=== PATIENT | male | born 1945 | race Caucasian/White ===

== ENCOUNTER 2020-03-24 10:00 | Inpatient (IN) ==
[2020-03-24] MEDS ORDERED: Naloxone 0.4 MG/ML INJ IVP PRN ×2 (11:59→21:07)
[2020-03-24] MEDS ORDERED: *HR* Heparin 5,000 UNIT/ML VIAL SQ SCH (14:00)
[2020-03-24 14:54] LABS: Adenovirus Not Detected (Not Detect); Bordetella Pertussis Not Detected (Not Detect); Chlamydophila pneumoniae Not Detected (Not Detect); Coronavirus 229E Not Detected (Not Detect); Coronavirus HKU1 Not Detected (Not Detect); Coronavirus NL63 Not Detected (Not Detect); Coronavirus OC43 Not Detected (Not Detect); Human Metapneumovirus Not Detected (Not Detect); Human Rhinovirus/Enterovirus Not Detected (Not Detect); Influenza A Subtype 2009 H1 Not Detected (Not Detect); Influenza B Not Detected (Not Detect); Mycoplasma pneumoniae Not Detected (Not Detect); Parainfluenza Virus 1 Not Detected (Not Detect); Parainfluenza Virus 2 Not Detected (Not Detect); Parainfluenza Virus 3 Not Detected (Not Detect); Parainfluenza Virus 4 Not Detected (Not Detect); Respiratory Syncytial Virus Not Detected (Not Detect); SARS-CoV-2 Not Detected (Not Detect)
[2020-03-24] MEDS ORDERED: Ethanol\\Acetic Acid\\Na Ace\\Ben 1,000 ML IRRIG.SOLN IR ONE (17:17)
[2020-03-24] MEDS ORDERED: Vancomycin 1,000 MG VIAL ONE (17:18)
[2020-03-24] MEDS ORDERED: traZODone 50 MG TABLET PO PRN ×2 (17:23→21:07)
[2020-03-24] MEDS ORDERED: CeFAZolin Syr 2,000MG/20 ML 2,000 MG/20 ML SYRINGE IVPB ONE (18:22)
[2020-03-24] MEDS ORDERED: *HR* FentaNYL (PF) 100 MCG/2 ML VIAL ONE (18:29)
[2020-03-24] MEDS ORDERED: *HR* Propofol 200 MG/20 ML VIAL IVP ONE (18:30)
[2020-03-24] MEDS ORDERED: Dexamethasone 4 MG/ML VIAL ONE (18:46)
[2020-03-24] MEDS ORDERED: Ondansetron 4 MG/2 ML VIAL ONE (18:46)
[2020-03-24] MEDS ORDERED: *HR* PHENYLEPHRINE 1,000 MCG/10 ML SYRINGE IVP ONE (18:51)
[2020-03-24] MEDS ORDERED: Ondansetron 4 MG/2 ML VIAL IVP ONE (19:06)
[2020-03-24] MEDS: Morphine Sulfate 2 MG/ML SYRINGE IVP PRN ×5 (19:38→19:59)
[2020-03-24] MEDS ORDERED: Acetaminophen IV 1,000 MG/100 ML INFUS..BTL ONE (19:51)
[2020-03-24] MEDS ORDERED: Acetaminophen IV 1,000 MG/100 ML INFUS..BTL IVPB ONE (20:01)
[2020-03-24] MEDS ORDERED: *HR* HYDROmorphone (PF) 1 MG/ML SYRINGE ONE (20:06)
[2020-03-24] MEDS: *HR* HYDROmorphone 2 MG/ML SYRINGE IVP SCH ×2 (20:08→20:17)
[2020-03-24] MEDS ORDERED: Ringers Solution, Lactated 1,000 ML ONE (20:09)
[2020-03-24] MEDS ORDERED: *HR* HYDROmorphone 2 MG/ML SYRINGE IVP ONE (20:26)
[2020-03-24] MEDS ORDERED: *HR* HYDROmorphone (PF) 1 MG/ML SYRINGE IVP ONE (20:45)
[2020-03-24] MEDS ORDERED: D5% in Water 1,000 ML IVC PRN (21:07)
[2020-03-24] MEDS ORDERED: *HR* Dextrose 50 % in Water (Vial) 50 ML VIAL IVP PRN (21:07)
[2020-03-24] MEDS ORDERED: Ondansetron 4 MG/2 ML VIAL IVP PRN (21:07)
[2020-03-24] MEDS ORDERED: Ringers Solution, Lactated 1,000 ML IVC SCH (21:07)
[2020-03-24] MEDS ORDERED: MOM Conc 10 ML UD.LIQ PO PRN (21:07)
[2020-03-24] MEDS ORDERED: *HR* HYDROcodone/Acet 5/325 mg TABLET PO PRN (21:07)
[2020-03-24] MEDS ORDERED: Dextrose Gel 15 GM/37.5 ML TUBE PO PRN ×2 (21:07)
[2020-03-24] MEDS ORDERED: Sennosides 8.6 MG TABLET PO PRN (21:07)
[2020-03-24] MEDS ORDERED: Vancomycin 1,500 MG/265 ML IV.SOLN IVPB ONE (22:00)
[2020-03-24] MEDS: Insulin LISPRO 300 UNITS/3 ML VIAL SQ SCH (22:01)
[2020-03-24] MEDS: *HR* HYDROcodone/Acet 10/325 mg TABLET PO PRN (23:35)
[2020-03-25] MEDS: Acetaminophen 325 MG TABLET PO PRN (04:44)
[2020-03-25] MEDS: Insulin LISPRO 300 UNITS/3 ML VIAL SQ SCH ×4 (08:32→21:23)
[2020-03-25] MEDS ORDERED: Finasteride 5 MG TABLET PO SCH (09:00)
[2020-03-25] MEDS ORDERED: lisinopriL 10 MG TABLET PO SCH (09:00)
[2020-03-25] MEDS ORDERED: Folic Acid 1 MG TABLET PO SCH (09:00)
[2020-03-25] MEDS ORDERED: Etanercept [Enbrel Sureclick] 50 MG SQ SCH (09:00)
[2020-03-25] MEDS ORDERED: predniSONE 10 MG TABLET PO SCH (09:00)
[2020-03-25] MEDS ORDERED: Aspirin Enteric Coated 325 MG Tablet PO SCH (09:00)
[2020-03-25] MEDS: predniSONE 10 MG TABLET PO SCH (10:02)
[2020-03-25] MEDS: Finasteride 5 MG TABLET PO SCH (10:02)
[2020-03-25] MEDS: Aspirin Enteric Coated 325 MG Tablet PO SCH (10:03)
[2020-03-25] MEDS: Folic Acid 1 MG TABLET PO SCH (10:04)
[2020-03-25] MEDS: lisinopriL 10 MG TABLET PO SCH (10:04)
[2020-03-25 11:30] LABS: Basophils # 0.1 K/mcL (0.0-0.2); Basophils % 0.5 %; Eosinophils # 0.1 K/mcL (0.0-0.6); Eosinophils % 0.7 %; Hematocrit 40.3 % (37.5-50.1); Hemoglobin 12.8 g/dL (12.9-16.9); Immature Granulocytes % 0.5 % (0-4); Lymphocytes % 10.9 %; Mean Corpuscular HGB Conc 31.8 g/dL (31.6-35.5); Mean Corpuscular Hemoglobin 29.2 pg (28.0-33.3); Mean Corpuscular Volume 91.8 fL (83.0-100.0); Mean Platelet Volume 10.5 fL (9.4-12.4); Monocytes # 0.9 K/mcL (0.0-1.3); Monocytes % 10.1 %; Platelet Count 170 K/mcL (140-400); Red Blood Count 4.39 M/mcL (4.19-5.50); Red Cell Distribution Width 14.3 % (11.5-14.5); Segmented Neutrophils % 77.3 %; White Blood Count 9.1 K/mcL (4.3-11.1)
[2020-03-25 11:48] LABS: BUN/Creatinine Ratio 17 (6-26); Blood Urea Nitrogen 16 mg/dL (8-23); Calcium 8.2 mg/dL (8.6-10.3); Carbon Dioxide 23 mEq/L (23-29); Chloride 106 mEq/L (98-107); Glucose 153 mg/dL (70-105); Osmolality,Calculated 284 (280-300); Potassium 4.1 mEq/L (3.5-5.1); Sodium 135 mEq/L (136-145); eGFR For African Americans > 60 (> 60); eGFR For Non-African Americans > 60 (> 60)
[2020-03-25] MEDS: *HR* HYDROcodone/Acet 10/325 mg TABLET PO PRN (13:31)
[2020-03-25] MEDS: Piperacillin/Tazobactam 3.375 GM in 0.9 % Sodium Chloride Mini Bag 100 ML IVPB SCH (20:20)
[2020-03-26] MEDS: Piperacillin/Tazobactam 3.375 GM in 0.9 % Sodium Chloride Mini Bag 100 ML IVPB SCH ×2 (02:34→11:16)
[2020-03-26] MEDS: Insulin LISPRO 300 UNITS/3 ML VIAL SQ SCH ×4 (07:48→22:19)
[2020-03-26] MEDS: lisinopriL 10 MG TABLET PO SCH (07:57)
[2020-03-26] MEDS: Aspirin Enteric Coated 325 MG Tablet PO SCH (07:57)
[2020-03-26] MEDS: predniSONE 10 MG TABLET PO SCH (07:58)
[2020-03-26] MEDS: *HR* HYDROcodone/Acet 10/325 mg TABLET PO PRN ×2 (07:58→15:20)
[2020-03-26] MEDS: Finasteride 5 MG TABLET PO SCH (07:58)
[2020-03-26] MEDS: Folic Acid 1 MG TABLET PO SCH (07:58)
[2020-03-26 08:58] LABS: Basophils # 0.1 K/mcL (0.0-0.2); Basophils % 1.1 %; Eosinophils # 0.1 K/mcL (0.0-0.6); Eosinophils % 1.6 %; Hematocrit 42.5 % (37.5-50.1); Hemoglobin 13.7 g/dL (12.9-16.9); Lymphocytes # 1.9 K/mcL (0.6-4.6); Lymphocytes % 21.8 %; Mean Corpuscular HGB Conc 32.2 g/dL (31.6-35.5); Mean Corpuscular Hemoglobin 29.1 pg (28.0-33.3); Mean Corpuscular Volume 90.2 fL (83.0-100.0); Mean Platelet Volume 10.1 fL (9.4-12.4); Monocytes # 1.1 K/mcL (0.0-1.3); Monocytes % 12.8 %; Neutrophils # 5.4 K/mcL (1.6-8.9); Platelet Count 182 K/mcL (140-400); Red Blood Count 4.71 M/mcL (4.19-5.50); Red Cell Distribution Width 14.2 % (11.5-14.5); Segmented Neutrophils % 61.7 %; White Blood Count 8.7 K/mcL (4.3-11.1)
[2020-03-26 09:18] LABS: BUN/Creatinine Ratio 20 (6-26); Blood Urea Nitrogen 19 mg/dL (8-23); Calcium 8.7 mg/dL (8.6-10.3); Carbon Dioxide 23 mEq/L (23-29); Chloride 104 mEq/L (98-107); Glucose 120 mg/dL (70-105); Osmolality,Calculated 281 (280-300); Potassium 3.8 mEq/L (3.5-5.1); Sodium 134 mEq/L (136-145); eGFR For African Americans > 60 (> 60); eGFR For Non-African Americans > 60 (> 60)
[2020-03-26] MEDS: Acetaminophen 325 MG TABLET PO PRN (19:46)
[2020-03-27 01:29] LABS: Hematocrit 38.9 % (37.5-50.1); Hemoglobin 12.8 g/dL (12.9-16.9); Mean Corpuscular HGB Conc 32.9 g/dL (31.6-35.5); Mean Corpuscular Volume 91.1 fL (83.0-100.0); Mean Platelet Volume 10.5 fL (9.4-12.4); Platelet Count 148 K/mcL (140-400); Red Blood Count 4.27 M/mcL (4.19-5.50); Red Cell Distribution Width 14.1 % (11.5-14.5); White Blood Count 7.6 K/mcL (4.3-11.1)
[2020-03-27 01:45] LABS: BUN/Creatinine Ratio 21 (6-26); Blood Urea Nitrogen 20 mg/dL (8-23); Calcium 8.4 mg/dL (8.6-10.3); Carbon Dioxide 25 mEq/L (23-29); Chloride 105 mEq/L (98-107); Glucose 148 mg/dL (70-105); Osmolality,Calculated 289 (280-300); Potassium 3.5 mEq/L (3.5-5.1); Sodium 137 mEq/L (136-145); eGFR For African Americans > 60 (> 60); eGFR For Non-African Americans > 60 (> 60)
[2020-03-27] MEDS: *HR* HYDROcodone/Acet 10/325 mg TABLET PO PRN (04:36)
[2020-03-27] MEDS: Insulin LISPRO 300 UNITS/3 ML VIAL SQ SCH (07:26)
[2020-03-27] MEDS ORDERED: levoFLOXacin 750 MG TABLET PO SCH (09:00)
[2020-03-27] MEDS: predniSONE 10 MG TABLET PO SCH (09:05)
[2020-03-27] MEDS: Folic Acid 1 MG TABLET PO SCH (09:05)
[2020-03-27] MEDS: lisinopriL 10 MG TABLET PO SCH (09:06)
[2020-03-27] MEDS: Finasteride 5 MG TABLET PO SCH (09:06)
[2020-03-27] MEDS: Aspirin Enteric Coated 325 MG Tablet PO SCH (09:06)
[2020-03-27 11:13] VITALS: BP 136/83
[2020-03-29] MEDS ORDERED: *HR* Methotrexate 2.5 MG TABLET PO SCH ×2 (09:00→17:23)
== END 2020-03-27 12:25 | disposition home health service (06) | DRG 857 ==
LOC: 3NENU → SUATTDRO 10:24
PROVIDERS: ADMIT Orthopaedic Surgery; ATTEND Internal Medicine

== ENCOUNTER 2020-07-25 06:14 | Inpatient (IN) ==
[~2020-07-25 06:14] MED LIST: ceFAZolin 1,000 MG, Sodium Chloride IRRigation 1,000 ML IR ONE
[2020-07-25] MEDS ORDERED: CeFAZolin Syr 2,000MG/20 ML 2,000 MG/20 ML SYRINGE IVPB ONE (06:35)
[2020-07-25] MEDS ORDERED: Ringers Solution, Lactated 1,000 ML IVC SCH ×2 (07:00→07:45)
[2020-07-25] MEDS ORDERED: *HR* Phenylephrine 10 MG/ML VIAL ONE (07:36)
[2020-07-25] MEDS ORDERED: *HR* HYDROmorphone 2 MG TABLET PO PRN (07:39)
[2020-07-25] MEDS ORDERED: *HR* HYDROcodone/Acet 7.5/325 mg TABLET PO PRN (07:39)
[2020-07-25] MEDS ORDERED: *HR* Labetalol 20 MG/4 ML SYRINGE IVP PRN ×2 (07:39→12:59)
[2020-07-25] MEDS ORDERED: *HR* FentaNYL (PF) 100 MCG/2 ML VIAL ONE (07:41)
[2020-07-25] MEDS ORDERED: *HR* Propofol 200 MG/20 ML VIAL IVP ONE (07:42)
[2020-07-25] MEDS ORDERED: *HR* Midazolam HCl 2 MG/2 ML VIAL ONE (07:42)
[2020-07-25] MEDS ORDERED: *HR* Succinylcholine 200 MG/10 ML VIAL IVP ONE (07:43)
[2020-07-25] MEDS ORDERED: Lidocaine -MPF 2% 2 ML VIAL ONE ×2 (07:46→08:02)
[2020-07-25] MEDS ORDERED: Ondansetron 4 MG/2 ML VIAL ONE (07:46)
[2020-07-25] MEDS ORDERED: NiCARdipine 2.5 MG/10 ML Syringe IVPB ONE (07:49)
[2020-07-25] MEDS ORDERED: *HR* Remifentanil 2 MG VIAL IVP ONE (07:49)
[2020-07-25] MEDS ORDERED: *HR* Vasopressin 20 UNIT/ML VIAL ONE (07:50)
[2020-07-25] MEDS ORDERED: Heparin 1,000 UNITS/500 mL 500 ML ONE ×2 (07:51→07:53)
[2020-07-25] MEDS ORDERED: Lidocaine -MPF 4% 5 ML AMPUL ONE (07:59)
[2020-07-25] MEDS ORDERED: EPHEDrine 50 MG/ML VIAL ONE (09:13)
[2020-07-25] MEDS ORDERED: *HR* Heparin 5,000 UNIT/ML VIAL ONE (09:14)
[2020-07-25] MEDS: *HR* HYDROmorphone PF 0.5 MG/0.5 ML SYRINGE IVP PRN ×3 (11:35→11:46)
[2020-07-25] MEDS ORDERED: Ondansetron 4 MG/2 ML VIAL IVP PRN (12:59)
[2020-07-25] MEDS ORDERED: Acetaminophen 325 MG TABLET PO PRN (12:59)
[2020-07-25] MEDS ORDERED: traZODone 50 MG TABLET PO PRN (12:59)
[2020-07-25] MEDS ORDERED: Naloxone 0.4 MG/ML INJ IVP PRN (12:59)
[2020-07-25] MEDS: *HR* HYDROcodone/Acet 5/325 mg TABLET PO PRN ×2 (13:35→20:54)
[2020-07-25] MEDS: Acetaminophen 325 MG TABLET PO PRN (17:26)
[2020-07-25] MEDS: CeFAZolin 2 GM/120 ML BAG IVPB SCH (17:27)
[2020-07-25] MEDS: Lactobacillus 1 EACH CAP.SPRINK PO SCH (20:54)
[2020-07-26] MEDS: CeFAZolin 2 GM/120 ML BAG IVPB SCH ×2 (00:03→08:42)
[2020-07-26 04:54] LABS: Basophils % 0.2 %; Eosinophils % 0.1 %; Hematocrit 39.8 % (37.5-50.1); Hemoglobin 13.1 g/dL (12.9-16.9); Immature Granulocytes % 0.5 % (0-4); Lymphocytes # 1.1 K/mcL (0.6-4.6); Lymphocytes % 10.8 %; Mean Corpuscular HGB Conc 32.9 g/dL (31.6-35.5); Mean Corpuscular Hemoglobin 28.9 pg (28.0-33.3); Mean Corpuscular Volume 87.9 fL (83.0-100.0); Mean Platelet Volume 9.9 fL (9.4-12.4); Monocytes # 1.2 K/mcL (0.0-1.3); Monocytes % 12.5 %; Neutrophils # 7.4 K/mcL (1.6-8.9); Platelet Count 147 K/mcL (140-400); Red Blood Count 4.53 M/mcL (4.19-5.50); Red Cell Distribution Width 15.5 % (11.5-14.5); Segmented Neutrophils % 75.9 %; White Blood Count 9.7 K/mcL (4.3-11.1)
[2020-07-26 05:08] LABS: BUN/Creatinine Ratio 22 (6-26); Blood Urea Nitrogen 20 mg/dL (8-23); Calcium 8.5 mg/dL (8.6-10.3); Carbon Dioxide 24 mEq/L (23-29); Chloride 105 mEq/L (98-107); Glucose 132 mg/dL (70-105); Osmolality,Calculated 284 (280-300); Potassium 4.4 mEq/L (3.5-5.1); Sodium 135 mEq/L (136-145); eGFR For African Americans > 60 (> 60); eGFR For Non-African Americans > 60 (> 60)
[2020-07-26 07:56] VITALS: BP 109/81
[2020-07-26] MEDS: Lactobacillus 1 EACH CAP.SPRINK PO SCH (08:41)
[2020-07-26] MEDS ORDERED: lisinopriL 10 MG TABLET PO SCH (09:00)
[2020-07-26] MEDS ORDERED: Folic Acid 1 MG TABLET PO SCH (09:00)
[2020-07-26] MEDS ORDERED: Aspirin Enteric Coated 325 MG Tablet PO SCH (09:00)
[2020-07-26] MEDS ORDERED: predniSONE 5 MG TABLET PO SCH (09:00)
[2020-07-26] MEDS ORDERED: Finasteride 5 MG TABLET PO SCH (09:00)
[2020-07-26] MEDS: Acetaminophen 325 MG TABLET PO PRN (11:10)
[2020-07-26] MEDS ORDERED: *HR* Methotrexate 2.5 MG TABLET PO SCH (11:21)
[2020-07-31] MEDS ORDERED: Patient Taking Own Medication 1 EACH SQ SCH (11:21)
== END 2020-07-26 11:14 | disposition home or self-care (01) ==
LOC: SAMDAY 06:14 → 2NNU 12:52
PROVIDERS: ADMIT Surgery Vascular Surgery; ATTEND Surgery Vascular Surgery

== ENCOUNTER 2020-09-03 14:37 | Inpatient (IN) ==
[2020-09-03] MEDS ORDERED: *HR* Midazolam HCl 2 MG/2 ML VIAL ONE (14:55)
[2020-09-03] MEDS ORDERED: 0.9 % Sodium Chloride 2,000 ML ONE (14:56)
[2020-09-03] MEDS ORDERED: *HR* Heparin 10,000 UNIT/10 ML VIAL ONE (14:56)
[2020-09-03] MEDS ORDERED: Nitroglycerin 1,000 MCG/10 ML VIAL IV ONE (14:56)
[2020-09-03] MEDS ORDERED: ISOVUE-370 200 ML INFUS..BTL ONE (14:56)
[2020-09-03] MEDS ORDERED: *HR* FentaNYL (PF) 100 MCG/2 ML VIAL ONE (14:56)
[2020-09-03] MEDS ORDERED: Tirofiban 12.5 MG/250ML 12.5 MG/250 ML BAG ONE (15:45)
[2020-09-03] MEDS ORDERED: *HR* Nitroprusside 50 MG VIAL IVC ONE (15:50)
[2020-09-03] MEDS ORDERED: D5% in Water 250 ML ONE (15:50)
[2020-09-03] MEDS ORDERED: *HR* Atropine Sulfate 1 MG/10 ML SYRINGE ONE (16:01)
[2020-09-03] MEDS ORDERED: 0.9 % Sodium Chloride 1,000 ML ONE (16:23)
[2020-09-03] MEDS ORDERED: Perflutren Lipid Microsphere 1.3 ML in 0.9 % Sodium Chloride 8.7 ML IVP PRN (16:36)
[2020-09-03] MEDS ORDERED: Tirofiban 12.5 MG/250ML 12.5 MG/250 ML BAG IVC SCH (16:45)
[2020-09-03] MEDS: *HR* Ticagrelor 90 MG TABLET PO SCH (20:25)
[2020-09-04 05:53] LABS: Basophils % 0.5 %; Eosinophils # 0.2 K/mcL (0.0-0.6); Eosinophils % 3.2 %; Hematocrit 40.6 % (37.5-50.1); Hemoglobin 13.4 g/dL (12.9-16.9); Immature Granulocytes % 0.3 % (0-4); Lymphocytes % 16.6 %; Mean Corpuscular Hemoglobin 29.6 pg (28.0-33.3); Mean Corpuscular Volume 89.8 fL (83.0-100.0); Mean Platelet Volume 10.4 fL (9.4-12.4); Monocytes # 0.7 K/mcL (0.0-1.3); Monocytes % 10.4 %; Neutrophils # 4.3 K/mcL (1.6-8.9); Platelet Count 121 K/mcL (140-400); Red Blood Count 4.52 M/mcL (4.19-5.50); Red Cell Distribution Width 15.5 % (11.5-14.5); White Blood Count 6.3 K/mcL (4.3-11.1)
[2020-09-04 06:11] LABS: BUN/Creatinine Ratio 16 (6-26); Blood Urea Nitrogen 17 mg/dL (8-23); Calcium 8.5 mg/dL (8.6-10.3); Carbon Dioxide 22 mEq/L (23-29); Chloride 107 mEq/L (98-107); Glucose 119 mg/dL (70-105); Osmolality,Calculated 285 (280-300); Potassium 3.8 mEq/L (3.5-5.1); Sodium 136 mEq/L (136-145); eGFR For African Americans > 60 (> 60); eGFR For Non-African Americans > 60 (> 60)
[2020-09-04] MEDS: lisinopriL 10 MG TABLET PO SCH (08:32)
[2020-09-04] MEDS: *HR* Ticagrelor 90 MG TABLET PO SCH ×2 (08:33→20:13)
[2020-09-04] MEDS: Aspirin 81 MG TAB.CHEW PO SCH (08:33)
[2020-09-04] MEDS ORDERED: Acetaminophen 325 MG TABLET PO PRN (15:05)
[2020-09-05] MEDS: *HR* Ticagrelor 90 MG TABLET PO SCH ×2 (08:32→15:58)
[2020-09-05] MEDS: lisinopriL 10 MG TABLET PO SCH (08:32)
[2020-09-05] MEDS: Aspirin 81 MG TAB.CHEW PO SCH (08:32)
[2020-09-05 15:10] VITALS: BP 144/92
== END 2020-09-05 14:10 | disposition home or self-care (01) | DRG 247 ==
LOC: ICNU 17:02
PROVIDERS: ADMIT Internal Medicine Cardiovascular Disease; ATTEND Internal Medicine Cardiovascular Disease